=== PATIENT | female | born 1945 | race African-American/Black ===

== ENCOUNTER 2016-11-09 14:57 | Emergency (ER) | payer MEDICARE, OTHER ==
[~2016-11-09] VITALS: Ht 154.9 cm; Wt 100.0 kg
[~2016-11-09 14:57] MED LIST: AMLO10TA2 PO; ASPI81CH CHEW; ATOR1TAB18 PO; CANA100T PO; CARV3.12 PO; FERR325T PO; GABA300C5 PO; ISOS20TA PO; LANTUS2P SQ; LOSA50TA PO; METF-382 PO; METF1000 PO; NICO7DIS2 T-DERMAL; NITR1SUB2 SL; OMEP20TA PO; insulin syringe
[2016-11-09] MEDS ORDERED: SODIUM CHLOR 0.9% 1000 ML INJ 1,000 ML IV SCH (15:35)
[2016-11-09 15:40] VITALS: BP 170/77; PULSE 85; RESP 16; O2SAT 96
--- NOTE | 2016-11-09 16:16 | PD ---
HPI Chief Complaint: Diabetic Time Seen by Provider: 16:16 Travel History International Travel<30 days: No Contact w/Intl Traveler<30days: No Traveled to known affect area: No History of Present Illness HPI 71 year-old female history of diabetes presents to emergency department for evaluation of elevated blood glucose. Patient states she ran out of her Lantus 4 days ago. She missed scheduled her delivery date and will not be able to get it until tomorrow. Is concerned because blood glucose has been exceptionally high for her. States she has been not feeling well with her sugars elevated. Mild nausea. No vomiting. Some dizziness. No chest pain or tightness. No difficulty breathing. No other symptoms to report at this time. PFSH Past Medical History Anemia: Yes Arthritis: Yes (left knee, sometimes in R knee too.) Asthma: No Blood Disorders: No Anxiety: No Depression: No Heart Rhythm Problems: No Cancer: No Cardiac Catheterization: Yes (STENT) Cardiovascular Problems: Yes (STENTS) High Cholesterol: Yes Chemotherapy: No Chest Pain: Yes (x 3 mos) Congestive Heart Failure: No Cerebrovascular Accident: No Diabetes: Yes Patient Takes Glucophage: Yes Diminished Hearing: No Endocrine: Yes Genitourinary: No Headaches: Yes (once in a while) Hepatitis: No Hiatal Hernia: No Hypertension: Yes (CHOLESTEROL) Immune Disorder: No Musculoskeletal: Yes (, arthritis in knees) Neurologic: Yes Psychiatric: No Reproductive: No Respiratory: No Immunizations Current: No Radiation Therapy: No Sickle Cell Disease: No Sleep Apnea: No Thyroid Disease: No PNEUMOCCOCAL Vaccine (Year): 2 Menopausal: Yes Ectopic : Yes Tubal Ligation: Yes Past Surgical History Cardiac Surgery: Yes (CARDIA STENT) Coronary Stent: Yes Gynecologic Surgery: Yes (TUBAL ) Joint Replacement: No Pacemaker: No Other Surgery: Yes Family History Family Myocardial Infarction: Yes (SISTER) Social History Alcohol Use: Yes (WEEKENDS, FEW BEERS) Tobacco Use: Yes (QUIT A WEEK AGO ) Substance Use: No Allergies-Medications (Allergen,Severity, Reaction): Coded Allergies: No Known Allergies (Unverified , 11/09/16) Reported Meds & Prescriptions Reported Meds & Active Scripts Active Metformin (Metformin HCl) 1,000 Mg Tab 1,000 Mg PO BIDPC With meals Lantus Inj (Insulin Glargine) 1,000 Unit/10 Ml Vial 35 Units SQ HS Omeprazole 20 Mg Tab 20 Mg PO DAILY Losartan (Losartan Potassium) 50 Mg Tab 50 Mg PO DAILY Gabapentin 300 Mg Cap 300 Mg PO TID Carvedilol 3.125 Mg Tab 3.125 Mg PO BID Aspirin 81 Mg Chew 81 Mg CHEW ONCE Amlodipine (Amlodipine Besylate) 10 Mg Tab 10 Mg PO DAILY Review of Systems Except as stated in HPI: all other systems reviewed are Neg Physical Exam Narrative GENERAL: Well-nourished female patient, ambulatory no acute distress SKIN: Focused skin assessment warm/dry. HEAD: Atraumatic. Normocephalic. EYES: Pupils equal and round. No scleral icterus. No injection or drainage. ENT: No nasal bleeding or discharge. Mucous membranes pink and moist. NECK: Trachea midline. No JVD. CARDIOVASCULAR: Regular rate and rhythm. No murmur appreciated. RESPIRATORY: No accessory muscle use. Clear to auscultation. Breath sounds equal bilaterally. GASTROINTESTINAL: Abdomen soft, non-tender, nondistended. Hepatic and splenic margins not palpable. MUSCULOSKELETAL: No obvious deformities. No clubbing. No cyanosis. No edema. NEUROLOGICAL: Awake and alert. No obvious cranial nerve deficits. Motor grossly within normal limits. Normal speech. PSYCHIATRIC: Appropriate mood and affect; insight and judgment normal. Data Data Last Documented VS Vital Signs Date Time Temp Pulse Resp B/P Pulse Ox O2 Delivery O2 Flow Rate FiO2 11/09/16 19:47 85 17 159/70 98 Room Air Orders ^ Insert Iv (11/09/16 15:35) Lipase (11/09/16 15:35) Complete Blood Count With Diff (11/09/16 15:35) Comprehensive Metabolic Panel (11/09/16 15:35) Beta Hydroxybutyrate (Acetone) (11/09/16 15:35) Urinalysis - C+S If Indicated (11/09/16 15:35) Iv Access Insert/Monitor (11/09/16 15:35) Ecg Monitoring (11/09/16 15:35) Oximetry (11/09/16 15:35) Sodium Chlor 0.9% 1000 Ml Inj (Ns 1000 M (11/09/16 15:35) Electrocardiogram (11/09/16 15:35) Blood Glucose (11/09/16 17:14) Insulin Human Regular Inj (Novolin R Inj (11/09/16 18:15) Sodium Chlorid 0.9% 500 Ml Inj (Ns 500 M (11/09/16 18:15) Blood Glucose (11/09/16 19:01) Diet 1800 Ada Cons Carb (11/09/16 Dinner) Blood Glucose (11/09/16 19:34) Insulin Detemir Inj (Levemir Inj) (11/09/16 21:00) Blood Glucose (11/09/16 21:39) Labs Laboratory Tests Test 11/09/16 11/09/16 16:00 16:05 White Blood Count 10.8 TH/MM3 Red Blood Count 4.69 MIL/MM3 Hemoglobin 12.2 GM/DL Hematocrit 38.7 % Mean Corpuscular Volume 82.5 FL Mean Corpuscular Hemoglobin 26.0 PG Mean Corpuscular Hemoglobin 31.5 % Concent Red Cell Distribution Width 20.2 % Platelet Count 333 TH/MM3 Mean Platelet Volume 8.8 FL Neutrophils (%) (Auto) 73.5 % Lymphocytes (%) (Auto) 17.0 % Monocytes (%) (Auto) 6.2 % Eosinophils (%) (Auto) 2.5 % Basophils (%) (Auto) 0.8 % Neutrophils # (Auto) 8.0 TH/MM3 Lymphocytes # (Auto) 1.8 TH/MM3 Monocytes # (Auto) 0.7 TH/MM3 Eosinophils # (Auto) 0.3 TH/MM3 Basophils # (Auto) 0.1 TH/MM3 CBC Comment DIFF FINAL Differential Comment Sodium Level 134 MEQ/L Potassium Level 4.0 MEQ/L Chloride Level 101 MEQ/L Carbon Dioxide Level 19.1 MEQ/L Anion Gap 14 MEQ/L Blood Urea Nitrogen 11 MG/DL Creatinine 0.95 MG/DL Estimat Glomerular Filtration 70 ML/MIN Rate Random Glucose 409 MG/DL Calcium Level 9.5 MG/DL Total Bilirubin 0.3 MG/DL Aspartate Amino Transf 37 U/L (AST/SGOT) Alanine Aminotransferase 46 U/L (ALT/SGPT) Alkaline Phosphatase 153 U/L Total Protein 8.6 GM/DL Albumin 3.9 GM/DL Lipase 152 U/L B-Hydroxybutyrate 4.31 MMOL/L Urine Color LIGHT-YELLOW Urine Turbidity CLEAR Urine pH 5.5 Urine Specific Odin 1.023 Urine Protein 100 mg/dL Urine Glucose (UA) 1000 mg/dL Urine Ketones 150 mg/dL Urine Occult Blood MOD Urine Nitrite NEG Urine Bilirubin NEG Urine Urobilinogen LESS THAN 2.0 MG/DL Urine Leukocyte Esterase NEG Urine RBC 6 /hpf Urine WBC 3 /hpf Urine Squamous Epithelial 2 /hpf Cells Microscopic Urinalysis Comment CULT NOT INDICATED MDM Medical Decision Making Medical Screen Exam Complete: Yes Emergency Medical Condition: Yes Medical Record Reviewed: Yes Differential Diagnosis Hyperglycemia versus poorly controlled diabetes versus electrolyte abnormality versus DKA Narrative Course 71-year-old female presents to emergency department for evaluation elevated blood glucose. Initially blood glucose is 409. Get a hydroxybutyrate is 4.39. I discussed the patient with my attending physician Dr. Peace who has reviewed the labs and agrees the patient is not in DKA. Patient is given IV normal saline and 10 units subcutaneous regular insulin. Blood glucose trends down. Patient states that she is feeling better upon reassessment. She is given a dose of her evening Lantus as Levemir here. She will be discharged home. Instructed to follow-up with her primary care provider. She agrees to return immediately with any acute worsening of symptoms. Diagnosis Primary Impression: DM (diabetes mellitus), type 2, uncontrolled Qualified Code: E11.8 - Uncontrolled type 2 diabetes mellitus with complication, with long-term current use of insulin Referrals: Primary Care Physician Patient Instructions: Diabetic Hyperglycemia (ED), General Instructions Additional Instructions: Follow-up with your primary care provider Take Lantus as prescribed Return immediately with any acute worsening of symptoms Med/Other Pt SpecificInfo: No Change to Meds Disposition: 01 DISCHARGE HOME Condition: Stable [place]carl[place] MEADOWS Nov 09, 2016 16:16
[2016-11-09 16:33] LABS: BASOPHIL # 0.1 TH/MM3 (0-0.2); BASOPHIL % 0.8 % (0.0-2.0); EOSINOPHIL # 0.3 TH/MM3 (0-0.4); EOSINOPHIL % 2.5 % (0.0-4.0); HEMATOCRIT 38.7 % (35.0-46.0); HEMO FLAGS DIFF FINAL; LYMPHOCYTE # 1.8 TH/MM3 (1.0-4.8); MEAN CELL VOLUME 82.5 FL (80.0-100.0); MEAN CORPUSCULAR HGB CONC 31.5 % (32.0-36.0); MONO % 6.2 % (0.0-8.0); NEUT % 73.5 % (16.0-70.0); PLATELET COUNT 333 TH/MM3 (150-450); RED BLOOD COUNT 4.69 MIL/MM3 (4.00-5.30); RED CELL DISTRIBUTION WIDTH 20.2 % (11.6-17.2); WHITE BLOOD COUNT 10.8 TH/MM3 (4.0-11.0)
[2016-11-09 16:35] LABS: BLOOD, URINE MOD (NEG); COMMENT (UR) CULT NOT INDICATED; CULTURE IF INDICATED CULT NOT INDICATED; GLUCOSE,URINE 1000 mg/dL (NEG); KETONE, URINE 150 mg/dL (NEG); NITRITE,URINE NEG (NEG); PH, URINE 5.5 (5.0-8.5); SQUAMOUS EPITHELIAL CELL URINE 2 /hpf (0-5); URINE COLOR LIGHT-YELLOW (YELLW/STRAW)
[2016-11-09 17:16] LABS: ALKALINE PHOSPHATASE 153 U/L (45-117); ALT (GPT) 46 U/L (10-53); ANION GAP 14 MEQ/L (5-15); AST (GOT) 37 U/L (15-37); BETA-HYDROXYBUTYRATE 4.31 MMOL/L (0.00-0.39); BICARBONATE 19.1 MEQ/L (21.0-32.0); BLOOD UREA NITROGEN 11 MG/DL (7-18); CHLORIDE 101 MEQ/L (98-107); GLOMERULAR FILTRATION RATE 70 ML/MIN (>89); SODIUM (NA) 134 MEQ/L (136-145); TOTAL BILIRUBIN ADULT 0.3 MG/DL (0.2-1.0)
[2016-11-09 17:23] VITALS: BP 149/67; PULSE 84; RESP 16; O2SAT 98
[2016-11-09 17:44] VITALS: BP 155/70; PULSE 80; RESP 16
[2016-11-09] MEDS ORDERED: SODIUM CHLORID 0.9% 500 ML INJ 500 ML IV ONE (18:15)
[2016-11-09] MEDS ORDERED: INSULIN HUMAN REGULAR 1,000 UNITS/10 ML VIAL SQ ONE (18:15)
[2016-11-09 19:47] VITALS: BP 159/70; PULSE 85; RESP 17; O2SAT 98
[2016-11-09] MEDS ORDERED: INSULIN DETEMIR 100 UNITS/ML VIAL SQ SCH (21:00)
--- NOTE | 2016-11-10 22:28 | EKG ---
Date Performed: 11/09/2016 Time Performed: 17:42:28 PTAGE: 71 years EKG: Sinus rhythm MODERATE T-WAVE ABNORMALITY, CONSIDER ANTEROLATERAL ISCHEMIA MODERATE T-WAVE ABNORMALITY, CONSIDER I NFERIOR ISCHEMIA Since previous tracing, no significant change noted ABNORMAL ECG PREVIOUS TRACING : 01/31/2016 01.10.36 DOCTOR: Monica Rae Interpretating Date/Time 11/10/2016 22:26:42
== END 2016-11-10 | disposition home or self-care (01) ==
LOC: NEPE 14:57
DX: E11.65 Type 2 diabetes mellitus with hyperglycemia (principal); R94.31 Abnormal electrocardiogram [ECG] [EKG]; Z79.4 Long term (current) use of insulin; Z79.84 Long term (current) use of oral hypoglycemic drugs
CPT/HCPCS: 80053; 81001; 82010; 83690; 85025; 93005; 96360; 96372; 99284; J1815; J7030; J7040